=== PATIENT | male | born 1960 | race African-American/Black ===

== ENCOUNTER 2024-10-22 17:34 | Emergency (ER) | payer MEDICARE, MEDICAID, SELFPAY ==
[2024-10-22] VITALS (16 sets, daily range): BP systolic 88–143; BP diastolic 55–91; PULSE 67–107; RESP 14–26; TEMP 36.4–36.6; O2SAT 97–100
--- NOTE | ~2024-10-22 | CT_ITS ---
EXAMINATION: CT brain wo con DATE: 10/22/2024 18:23 INDICATION: Syncope TECHNIQUE: Computed tomography (CT) of the head was performed without intravenous contrast. Sagittal and coronal reconstructions were performed. The mA was adjusted according to patient size. Iterative reconstruction technique was employed. The dose-length product was 681.00 mGy-cm. COMPARISON: None FINDINGS: No fracture. No acute intracranial hemorrhage, acute infarction or abnormal extra axial fluid collection. Ventricles are normal and symmetric. No mass/mass effect. The callosal thickening at the floor of the bilateral maxillary sinuses. The orbits, paranasal sinuses and mastoid air cells are normal. IMPRESSION: 1. Normal brain. No acute intracranial process. Reviewed, dictated and finalized at location A.
--- NOTE | ~2024-10-22 | XR_ITS ---
EXAMINATION: XR chest 1V portable DATE: 10/22/2024 19:34 INDICATION: Syncope TECHNIQUE: frontal view of the chest was obtained. COMPARISON: None FINDINGS: The lungs are clear with no focal airspace opacities, pulmonary edema, pleural effusion or pneumothorax. The cardiomediastinal silhouette is normal. IMPRESSION: 1. No acute cardiopulmonary disease. Reviewed, dictated and finalized at location A.
--- NOTE | ~2024-10-22 | CT_ITS ---
EXAMINATION: CT cervical spine wo con DATE: 10/22/2024 18:22 INDICATION: Syncope and neck pain TECHNIQUE: Computed tomography (CT) of the cervical spine was performed without intravenous contrast. Automated exposure control and iterative reconstruction technique were employed. The dose-length product was 510.18 mGy-cm. COMPARISON: None FINDINGS: Alignment is normal. Severe osteoarthritis at the atlantoaxial articulation. Vertebral body heights are normal. No fracture. Mild disc height loss at C4-C5 through C6-C7. Disc bulges at C4-C5 and C5-C6 and posterior disc osteophyte complex at C6-C7 which result in mild central canal stenosis. Bridging anterior osteophyte and severe bilateral uncovertebral osteoarthritis at C6-C7. Moderate uncovertebral osteoarthritis at C4-C5 and C5-C6. Severe facet osteoarthritis on the right at C3-C4 with moderate osteoarthritis at many of the remaining bilateral cervical facet joints. This contributes to moderate neural foraminal stenosis on the right at C3-C4 and on the left at C4-C5. Mild neural from stenosis at many of the remaining neural foramina. Atherosclerotic calcification at the bilateral carotid bulbs. Likely benign 9 cm hypodense right thyroid nodule. Cervical soft tissues are otherwise unremarkable. Visualized apices of lungs are clear. IMPRESSION: 1. Mild cervical spondylosis. No acute osseous abnormality. Reviewed, dictated and finalized at location A.
--- NOTE | 2024-10-22 17:48 | ED_ITS ---
HPI - Syncope General Chief Complaint: Syncope Stated Complaint: syncope Time Seen by Provider: 10/22/24 17:47 Related Data Allergies Allergy/AdvReac Type Severity Reaction Status Date / Time No Known Allergies Allergy Verified 10/22/24 18:01 Exam 2 Narrative: Blood pressure lying is 101/63 standing blood pressure 88/55 Const: General: healthy appearing Nutritional Appearance: well nourished Orientation/consciousness: patient oriented x3 Limitations: no limitations Other: 64-year-old male with a history of ocular myasthenia, diabetes mellitus, dyslipidemia, hypertension was sitting on a bar stool having drank a couple of drinks when he felt warm and flushed. Subsequently he fell off the barstool. His friends around him picked him up and he regained consciousness without any focal deficits. No headache. No blurred vision. He had transient dizziness. His blood sugar was noted to be 101. His blood pressure was noted to be 90/50. No injury sustained. No chest pain or shortness of breath. HENMT: Head: normal to inspection Ears: external ears normal F leo/Nose/Sinus: Normal external nose present Face and sinus: normal facial exam Mouth: Yes Normal oral and palatal mucosa present Throat: posterior oropharynx normal Eyes: Conjunctivae: conjunctivae normal Pupils: Equal, round and reactive pupils present EOM: EOMs intact bilaterally Direct Ophthalmoscopy: no photophobia Neck: Neck: normal visual inspection and no lymphadenopathy Chest: Chest palpation & inspection: normal inspection of the chest Resp: Effort & Inspection: normal respiratory effort Auscultation: clear to auscultation bilaterally Cardio: Rate: regular rate Rhythm: regular rhythm GI: Auscultation: normal bowel sounds Other: No tenderness/ rigidity /rebound. : Testes: Testes normal Back/Spine/Pelvis: Back: no CVA tenderness Skin: General skin exam: normal color Rashes: no rashes Wounds: no wounds Neuro: General: patient oriented x3, moves all extremities, no meningeal signs, no focal motor deficits and CN's II-XI intact bilaterally Cranial nerves: Yes Nystagmus not present Speech: normal speech Gait exam (Neuro): Normal gait present Extrem: General: normal to inspection and no clubbing, cyanosis or edema Psych: Mental Status: mental status grossly normal Affect: normal affect Attitude: cooperative Course Course Emergency Course: Syncope-- History is suggestive of vasovagal syncope. The patient felt warm and sweaty. Subsequently he was found on the floor. He then regained consciousness without any residual symptoms other than mild dizziness. .Not orthostatic. blood pressure was noted to be marginal and hands hypovolemia could have caused syncope with vasodilatory effect of alcohol. Blood alcohol level is 0.01 ppm marginal blood pressure-- Improved with IV fluids. CKD with a BUN/creatinine of 16/1.6 lactic acidosis a level of 6.1.-- No obvious focus of infection. Patient is afebrile with a normal white cell count. Chest x-ray is negative. Patient received 1.5 L of IV fluids. Vital Signs Vital signs: Vital Signs Temperature 36.4 C L 10/22/24 17:34 Pulse Rate 94 10/22/24 17:34 Respiratory Rate 14 10/22/24 17:34 Blood Pressure 99/56 L 10/22/24 17:34 Pulse Oximetry 98 10/22/24 17:34 Oxygen Delivery Room Air 10/22/24 17:34 Temperature 36.4 C L 10/22/24 17:34 Pulse Rate 107 H 10/22/24 20:30 Respiratory Rate 20 10/22/24 20:30 Blood Pressure 138/81 10/22/24 20:30 Pulse Oximetry 100 10/22/24 20:30 Oxygen Delivery Room Air 10/22/24 20:30 MDM - Syncope MDM Narrative Medical decision making narrative: syncope possibly vasovagal/ hypovolemic CKD lactic acidosis Differential Diagnosis Differential diagnosis: Likely vasovagal syncope Lab Data Attestation: I reviewed the patient's lab results. 10/22/24 18:36 10/22/24 18:36 Labs: Lab Results 10/22/24 10/22/24 10/22/24 Range/Units 18:36 20:31 20:38 WBC 10.7 (4.8-10.8) K/mm3 RBC 5.43 (4.70-6.10) M/mm3 Hgb 14.5 (12.4-15.3) g/dL Hct 46.8 H (37.0-46.0) % MCV 86.2 (78.0-102.0) fL MCH 26.7 L (27.0-31.0) pg MCHC 31.0 L (32-36) g/dL RDW 13.4 (11.6-14.4) % Plt Count 307 (150-420) K/mm3 MPV 10.0 (8.7-11.0) fl Immature Gran % (Auto) 0.4 H (0.0-0.0) % Neut % (Auto) 81.3 H (50.0-70.0) % Lymph % (Auto) 12.0 L (18.0-42.0) % [place] % (Auto) 5.1 (2.0-11.0) % Eos % (Auto) 1.0 (1.0-6.0) % Baso % (Auto) 0.2 (0.0-1.0) % Lymph # (Auto) 1.28 (1.10-4.50) K/mm3 [place] # (Auto) 0.55 (0.10-0.90) K/mm3 Eos # (Auto) 0.11 (0.02-0.50) K/mm3 Baso # (Auto) 0.02 (0.00-0.10) K/mm3 Abs Immat Gran (auto) 0.04 H (0.00-0.00) K/mm3 Absolute Neuts (auto) 8.69 H (1.70-7.20) K/mm3 Absolute Nucleated RBC 0.00 (0.00-0.00) K/mm3 Nucleated RBC % 0.0 (0-0.0) % Sodium 142 (137-145) mmol/L Potassium 4.2 (3.4-5.0) mmol/L Chloride 100 (98-107) mmol/L Carbon Dioxide 22 (22-30) mmol/L Anion Gap 20 H (4-12) mmol/L BUN 16 (9-20) mg/dL Creatinine 1.57 H (0.7-1.3) mg/dL Estim Creat Clear Calc 43 ml/min Estimated GFR 44 L (59 - ) Glucose 134 H (65-110) mg/dL Calculated Osmolality 297 H (285-295) mOsm/kg Lactic Acid 6.1 H 3.5 H (0.4-2.0) mmol/L Calcium 10.1 (8.4-10.2) mg/dL Total Bilirubin 0.6 (0.2-1.3) mg/dL AST 26 (17-59) U/L ALT 19 (6-50) U/L Alkaline Phosphatase 78 (38-126) U/L Troponin I < 0.012 (0.000-0.034) ng/mL NT-Pro-B Natriuret Pep < 20 (19.9-100) pg/mL Total Protein 7.8 (6.3-8.2) g/dL Albumin 4.9 (3.5-5.1) g/dL Lipase 165 (23-300) U/L Urine Color Yellow (Yellow) Urine Appearance Clear (Clear) Urine pH 5.5 (5.0-8.0) Ur Specific [place] >= 1.030 H (1.010-1.020) Urine Protein 1+ H (Negative) Urine Glucose (UA) Negative (Negative) Urine Ketones 1+ H (Negative) Ur Blood (Man) Negative (Negative) Urine Nitrate Negative (Negative) Urine Bilirubin 1+ H (Negative) Urine Urobilinogen 1.0 (0.2-1.0) mg/dL Leukocyte Esterase Rfl Negative (Negative) ASHER/UL Amorphous Sediment Moderate H (None) Hyaline Casts 15-19 H (None) /lpf Granular Casts 10-14 H (None) /lpf Urine Mucus Heavy H /lpf Ethyl Alcohol < 10 (<10) mg/dL ECG Data EKG #1: ECG completion date: 10/22/24 ECG completion time: 19:21 Interpretation: sinus rhythm. Junction. The inversion in lateral leads. no ST elevation EKG #2: ECG completion date: 10/22/24 ECG completion time: 19:16 Interpretation: normal sinus rhythm. Normal axis. EKG is unchanged from a previous EKG done at 6:22 p.m.. Discharge Plan Discharge Clinical Impression: Acidosis, lactic Syncope Qualifiers: Syncope type: unspecified Qualified Code(s): R55 - Syncope and collapse CKD (chronic kidney disease) stage 3, GFR 30-59 ml/min Qualifiers: Chronic kidney disease stage 3 subtype: stage 3b (GFR 30-44) Qualified Code(s): N18.32 - Chronic kidney disease, stage 3b Patient Disposition: Home Condition: Stable Instructions: Antibiotic Form, Chronic Kidney Disease Diet (DC), Syncope (ED) Patient Language: [place] Island[place] Follow-up/Referrals: UNKNOWN,DOCTOR [Primary Care Provider] Time of Disposition: 21:49
--- NOTE | 2024-10-22 18:00 | ECG_ITS ---
Test Date: 2024-10-22 18:22:03 Measurements Intervals [place] Rate: 96 P: 59 NC: 215 QRS: 28 QRSD: 73 T: 30 QT: 312 QTc: 394 Interpretive Statements SINUS RHYTHM WITH FIRST DEGREE AV BLOCK NONSPECIFIC ST & T-WAVE ABNORMALITY No previous ECG available for comparison Electronically Signed On 10-23-2024 15:50:58 CDT by Ruel Matamoros M.D.
[2024-10-22] MEDS: LACTATED RINGERS 500 ML 999 ML IV CONT (18:23)
[2024-10-22 18:42] LABS: Hematocrit 46.8 % (37.0-46.0); Hemoglobin 14.5 g/dL (12.4-15.3); Immature Granulocyte Percent A 0.4 % (0.0-0.0); Lymphocytes Absolute Auto 1.28 K/mm3 (1.10-4.50); Mean Corpuscular HGB Conc 31.0 g/dL (32-36); Mean Corpuscular Hemoglobin 26.7 pg (27.0-31.0); Mean Corpuscular Volume 86.2 fL (78.0-102.0); Nucleated Red Blood Cells Absolute Auto 0.00 K/mm3 (0.00-0.00); Nucleated Red Blood Cells Perc 0.0 % (0-0.0); Platelet Count Result 307 K/mm3 (150-420); Red Blood Count 5.43 M/mm3 (4.70-6.10); White Blood Count 10.7 K/mm3 (4.8-10.8)
[2024-10-22 18:49] LABS: Alanine Aminotransferase 19 U/L (6-50); Albumin Level 4.9 g/dL (3.5-5.1); Alkaline Phosphatase 78 U/L (38-126); Anion Gap 20 mmol/L (4-12); Aspartate Amino Transferase 26 U/L (17-59); Bilirubin,Total 0.6 mg/dL (0.2-1.3); Blood Urea Nitrogen 16 mg/dL (9-20); Calcium 10.1 mg/dL (8.4-10.2); Carbon Dioxide 22 mmol/L (22-30); Chloride 100 mmol/L (98-107); Estimated CRCL calculation 43 ml/min; Estimated Glomerular Filt Rate 44; Glucose 134 mg/dL (65-110); Osmolality Calculated 297 mOsm/kg (285-295); Potassium 4.2 mmol/L (3.4-5.0); Sodium 142 mmol/L (137-145); Total Protein 7.8 g/dL (6.3-8.2)
[2024-10-22 18:58] LABS: Lipase 165 U/L (23-300); NT Pro B Type Natriuretic Pept < 20 pg/mL (19.9-100)
--- NOTE | 2024-10-22 19:08 | ECG_ITS ---
Test Date: 2024-10-22 19:16:25 Measurements Intervals [place] Rate: 101 P: 58 IN: 204 QRS: 22 QRSD: 78 T: -25 QT: 306 QTc: 398 Interpretive Statements SINUS TACHYCARDIA NONSPECIFIC ST & T-WAVE ABNORMALITY ABNORMAL RHYTHM ECG Compared to ECG 10/22/2024 18:22:03 Sinus rhythm no longer present First degree AV block no longer present T-wave abnormality still present Electronically Signed On 10-23-2024 15:52:40 CDT by Ruel Matamoros M.D.
[2024-10-22 19:11] LABS: Troponin I < 0.012 ng/mL (0.000-0.034)
--- NOTE | 2024-10-22 19:20 | PC.NURSE ---
Report received, pt resting and fluids in fusing, VSS.
[2024-10-22] MEDS: SODIUM CHLORIDE 0.9% IV 1,000 ML 999 ML IV CONT (19:37)
--- NOTE | 2024-10-22 19:48 | PC.NURSE ---
PATIENT IS RESTING ON STRETCHER. CONCERNED ABOUT HIS EQUIPMENT THAT IS AT THE BAR. STATES HE HAS NO WAY TO GET BACK OUT THERE. INFORMED PATIENT THAT WE CAN FIGURE THAT PART OUT WHEN HE IS DISCHARGED. VERBALIZED UNDERSTANDING.
[2024-10-22 20:41] LABS: Add Urine Microscopic? YES; Appearance Urine Clear (Clear); Glucose Urine UA Negative (Negative); Leukocyte Esterase Ur Negative LEU/UL (Negative); Nitrate Urine Negative (Negative); Specific Grav Ur >= 1.030 (1.010-1.020)
--- NOTE | 2024-10-22 21:07 | PC.NURSE ---
CANDICE WITH LAB WAS UNABLE TO OBTAIN LACTIC ACID BLOOD DRAW. THIS RN OBTAINED BLOOD SAMPLE AND GAVE IT TO CANDICE
== END 2024-10-22 21:55 | disposition home or self-care (01) ==
PROVIDERS: Emergency Provider Internal Medicine Critical Care Medicine
DX: N18.32 Chronic kidney disease, stage 3b (principal); E87.20 Acidosis, unspecified; R55 Syncope and collapse
CPT/HCPCS: 36415; 70450; 71045; 72125; 80053; 81001; 82077; 83605; 83690; 83880; 84484; 85025; 93005; 96360; 99284; J7030; J7120